=== PATIENT | male | born 1970 | race Caucasian/White ===

== ENCOUNTER 2017-07-15 17:43 | Inpatient (IN) | payer OTHER ==
[~2017-07-15] VITALS: Ht 185.4 cm; Wt 122.5 kg
--- NOTE | 2017-07-15 18:37 | NUR ---
PRE ADMISSION 47 year old male at intake office, alert and oriented x4, verbally responsive. bp: 157/98 p: 99 t: 98.0 r: 16 o2 sat: 95%. patient denies any food or drug allergies. Patient reports he is here to detox off of: Etoh, reports began drinking alcohol at age 7, but for the past year has been consuming 2 pints of peppermint schnapps daily, last drink on flight, reports consuming 9 shots of liquor and 5 beers. Patient also reports substance use of: opiates. Per patient for the past 6-7 years has been consuming 30mg of oxycodone three times a day and 20 mg morphine every two hours by mouth, patient reports last consumed an opiate on 07/13/2017. Patient reports he does have prescription medications, but has not taken in at least 3 weeks, patient does not recall what home medications he is prescribed as per patient he knows he takes blood pressure medication, and depression medication. Patient reports past medical history of: lyme disease, hypertension, chronic back pain, neuropathy, and kidney failure. Denies any history of seizures. Dr. Bishop notified of new admission. Will endorse to fruit or nut picker nurse to follow up on admission, all pre admission information discussed with fruit or nut picker nurse.
[2017-07-15 19:27] LABS: *AMPHETAMINE, URINE NEGATIVE (NEGATIVE); *BARBITURATE, URINE NEGATIVE (NEGATIVE); *CANNABINOID, URINE NEGATIVE (NEGATIVE); *COCCAINE, URINE NEGATIVE (NEGATIVE); *OPIATE, URINE NEGATIVE (NEGATIVE); *PHENCYCLIDINE SCREEN,URINE NEGATIVE (NEGATIVE)
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
[2017-07-15 20:00] VITALS: BP 154/98
--- NOTE | 2017-07-15 21:13 | NUR ---
PRN MEDS ADMINISTRATION PATIENT C/O ANXIETY, DIARRHEA, NAUSEA NO EMESIS AND ABDOMINAL CRAMPING. PATIENT WAS GIVEN PRN ATIVAN, BENTYL, ZOFRAN , IMODIUM, CATAPRES, ROBAXIN AND ZOFRAN. PATIENT NOTED RESTLESS. COWS 14 AND CIWA 10. RELAXATION TECHNIQUE PROVIDED. WILL MONITOR FOR EFFECTIVENESS Addendum: 07/16/17 at 0352 by AVEL JOHNSON LVN PATIENT WAS ALSO GIVEN PRN VISTARIL
[2017-07-15 21:24] LABS: BASOPHILS # (AUTO) 0.1 K/uL (0.0-8.0); BASOPHILS % (AUTO) 0.8 % (0.0-2.0); EOSINOPHILS # (AUTO) 0.2 K/uL (0.0-0.7); EOSINOPHILS % (AUTO) 2.8 % (0.0-7.0); HEMATOCRIT 45.3 % (40-50); HEMOGLOBIN 15.5 G/DL (14.0-18.0); LYMPHOCYTES # (AUTO) 2.2 K/UL (0.8-4.8); LYMPHOCYTES % (AUTO) 29.4 % (20.5-51.5); MEAN CORPUSCULAR HEMOGLOBIN 35.4 UUG (27.0-31.0); MEAN CORPUSCULAR HGB CONC 34 g/dL (32.0-37.0); MEAN CORPUSCULAR VOLUME 103.7 FL (82.0-92.0); MONOCYTES # (AUTO) 0.4 K/UL (0.1-1.30); MONOCYTES % (AUTO) 5.9 % (0.0-11.0); NEUTROPHILS # (AUTO) 4.6 K/UL (1.8-8.9); NEUTROPHILS % (AUTO) 61.1 % (38.5-71.5); PLATELET COUNT (AUTO) 65 K/UL (150-450); RED BLOOD CELL COUNT(AUTO) 4.37 MIL/UL (4.7-6.1); WHITE BLOOD COUNT (AUTO) 7.5 K/UL (4.0-11.2)
[2017-07-15 21:37] LABS: ALANINE AMINOTRANSFERASE 57 U/L (16-63); ALKALINE PHOSPHATASE 149 U/L (50-136); AMYLASE 62 U/L (25-115); ASPARTATE AMINOTRANSFERASE 134 U/L (15-37); BILIRUBIN,TOTAL 3.7 mg/dL (0.2-1.0); CARBON DIOXIDE 29 mmol/L (21-32); CHLORIDE 104 mmol/L (98-107); CREATININE 0.6 mg/dL (0.6-1.3); ETHANOL 175 MG/DL (0-0); GLUCOSE 103 mg/dL (74-106); LIPASE 144 U/L (73-393); MAGNESIUM 1.5 mg/dL (1.8-2.4); POTASSIUM 3.2 mmol/L (3.5-5.1); TOTAL PROTEIN, SERUM 8.2 g/dL (6.4-8.2); UREA NITROGEN, BLOOD 8 mg/dL (7-18)
[2017-07-15 21:46] LABS: BAND % (MANUAL) 7 % (0-10); NEUTROPHILS % (MANUAL) 59 % (42-75)
[2017-07-15 21:47] LABS: EOSINOPHILS % (MANUAL) 2 % (0-8); LYMPHOCYTES % (MANUAL) 28 % (20-40); MONOCYTES % (MANUAL) 4 % (2-10)
--- NOTE | 2017-07-15 22:13 | NUR ---
PRN MEDS RE-ASSESSMENT PATIENT PAIN LEVEL 2/10 AT THIS TIME, LESS ANXIOUS AND PATIENT STATES HE FEELS MUCH BETTER, NO DIARRHEA AT THIS TIME. ROBAXIN, BENTYL, CATAPRES AND ATIVAN HELPFUL. WILL CONTINUE TO MONITOR.
--- NOTE | 2017-07-15 23:27 | NUR ---
PRN BENADRYL/VISTARIL ADMINISTRATION PATIENT REPORTS ANXIETY AND REQUESTS FOR SLEEP AID. PRN BENADRYL AND VISTARIL. WILL MONITOR FOR EFFECTIVENESS
[2017-07-16] VITALS: BP 117/66
--- NOTE | 2017-07-16 00:27 | NUR ---
PRN BENADRYL/VISTARIL RE-ASSESSMENT PATIENT IN BED WITH EYES CLOSED. RESPIRATION EVEN AND UNLABORED. SAFETY MEASURES IN PLACE. CALL LIGHT IN REACH. WILL CONTINUE TO MONITOR
[2017-07-16 04:00] VITALS: BP 127/67
--- NOTE | 2017-07-16 06:39 | NUR ---
PRN ZOFRAN AND BENTYL ADMINISTRATION PATIENT C/O ABDOMINAL CRAMPING AND NAUSEA. WILL MONITOR FOR EFFECTIVENESS
--- NOTE | 2017-07-16 07:26 | NUR ---
END OF SHIFT NOTE PATIENT COMPLIANT WITH MEDICATIONS AND TREATMENT PLAN. PATIENT STABLE. PATIENT WAS GIVE PRN ATIVAN, IMODIUM, ZOFRAN X2 , ROBAXIN, BENADRYL, VISTARIL , BENTYL X 2 AND CATAPRES. SLEPT 6 HOURS. FLUID INTAKE 1,006 ML. VOIDED X 2 . NO BM. LAST COWS 3 AND CIWA 1 . MAGNESIUM AND POTASSIUM REPLACED. THIAMINE INJECTION WAS GIVEN ON RIGHT DELTOID. SAFETY MEASURES IN PLACE. CALL LIGHT IN REACH. WILL CONTINUE TO MONITOR.
--- NOTE | 2017-07-16 07:39 | NUR ---
Re-assessment; Patient denies stomach cramps, states slight improvement of nausea. PRN medications are effective.
[2017-07-16 08:00] VITALS: BP 148/89
--- NOTE | 2017-07-16 08:00 | NUR ---
Start of shift note; Received report from night nurse. Patient is a 47 year old male admitted on 07/15/17 for ETOH, Opiate dependence. patient to evaluated by MD today. Patient reported history of Lyme disease 12 years ago, hypertension, chronic back pain, neuropathy, depression. Patient is on a full code status, on regular diet, NKA. Patient slept for 6 hours. Last COWS is 3 and last CIWA is 1 at 0400. Patient is on fall and seizure precaution. Bed in lowest position, call light within reach. Will continue to monitor patient.
--- NOTE | 2017-07-16 09:18 | NUR ---
PRN medication; Patient is complaining of agitation, elevated BP (148/89) also noted. PRN Clonidine 0.1mg PO given as per ordered. Will continue to monitor patient.
--- NOTE | 2017-07-16 10:18 | NUR ---
RE-assessment; Patient's BP is 128/78, patient stated slight improvement with agitation. PRN medication is effective.
--- NOTE | 2017-07-16 10:47 | NUR ---
PRN medication; PRN Ativan 1mg PO given for CIWA of 8 manifested by anxiety, fine tremors,hot and cold sweats, agitation. Will closely monitor patient for effectiveness of medication.
--- NOTE | 2017-07-16 11:47 | NUR ---
Re-assessment; Patient's current CIWA is 4, PRN medication is effective.
[2017-07-16 12:00] VITALS: BP 133/86
--- NOTE | 2017-07-16 13:01 | NUR ---
PRN medication; Patient is showing s/s/ of withdrawals, manifested by anxiety, agitation, hot and cold sweats, muscle aches, nausea. Patient's current COWS score is 13, PRN Subutex 4mg SL given per MD order. PRN Zofran 4mg ODT also given for nausea. Will continue to monitor patient for effectiveness of medication.
--- NOTE | 2017-07-16 13:31 | NUR ---
Re-assessment; Patient appears less anxious, denies nausea, mild tremors still noted. PRN medication noted to be effective , Current COWS score is 8. Will continue to monitor patient.
[2017-07-16 16:00] VITALS: BP 134/88
--- NOTE | 2017-07-16 18:09 | NUR ---
End of shift notes; Patient is AOX4. Patient is a 47 year old male admitted on 07/15/17 for ETOH, Opiate dependence. Patient to evaluated by MD today. Patient reported history of Lyme disease 12 years ago, hypertension, chronic back pain, neuropathy, depression. Patient is on a full code status, on regular diet, NKA. Patient was started on Ativan taper and patient to start Subutex taper tomorrow per MD order. Patient is on fall and seizure precaution. Bed in lowest position, call light within reach. Patient remained compliant with treatment plan and medication regime. Medications were effective in reducing withdrawal symptoms. All safety measures secured. Met all needs.
[2017-07-16 20:00] VITALS: BP 145/106
--- NOTE | 2017-07-16 20:00 | NUR ---
START OF SHIFT NOTE PATIENT IN HIS ROOM. ALERT AND VERBALLY RESPONSIVE. RESPIRATION EVEN AND UNLABORED. PATIENT REPORTS ANXIETY, TREMORS, SWEATING, CHILLS , NO N/V/D AND ABDOMINAL CRAMPING. APPETITE IS GOOD. NO BOWEL MOVEMENT AT THIS TIME. ENCOURAGE FLUIDS. ENCOURAGE PATIENT TO ATTEND GROUPS. RECEIVED REPORT FROM DAY SHIFT NURSE. PATIENT IS A 47 YEAR OLD MALE, ADMITTED FOR ETOH/OPIATE DEPENDENCE. PATIENT WAS PLACED ON 5 DAY ATIVAN TAPER, STARTED TODAY. DR. ANGELES ORDERED ABDOMINAL ULTRASOUND AND WAS DONE TODAY, RESULT PENDING AND REPEAT LABS. PATIENT WAS GIVEN PRN ATIVAN, SUBUTEX AND CLONIDINE, ALL EFFECTIVE. LAST COWS 8 AND CIWA 8. PATIENT COMPLIANT WITH MEDICATIONS . ON FALL/SEIZURE PRECAUTION. SAFETY MEASURES IN PLACE. CALL LIGHT IN REACH. WILL CONTINUE TO MONITOR.
--- NOTE | 2017-07-16 21:05 | NUR ---
PRN ROBAXIN AND CLONIDINE ADMINISTRATION PATIENT WAS GIVEN ROBAXIN FOR GENERALIZED BODY ACHES /10 AND BP-145/106 AND PULSE 117. WILL MONITOR FOR EFFECTIVENESS
--- NOTE | 2017-07-16 22:05 | NUR ---
PRN ROBAXIN AND CLONIDINE RE-ASSESSMENT PATIENT STATES HE FEELS MUCH BETTER . PAIN LEVEL IS 2/10 AT THIS TIME. BLOOD PRESSURE IS NOW 143/93 P-108. WILL CONTINUE TO MONITOR.
--- NOTE | 2017-07-16 23:12 | NUR ---
PRN SEROQUEL ADMINISTRATION PATIENT REQUESTS FOR SLEEP AID. PRN SEROQUEL GIVEN. WILL MONITOR FOR EFFECTIVENESS
[2017-07-17] VITALS (7 sets, daily range): BP systolic 139–158; BP diastolic 93–104
--- NOTE | 2017-07-17 00:12 | NUR ---
PRN SEROQUEL RE-ASSESSMENT PATIENT IN BED SLEEPING . RESPIRATION EVEN AND UNLABORED. SAFETY MEASURES IN PLACE. CALL LIGHT IN REACH. WILL CONTINUE TO MONITOR
--- NOTE | 2017-07-17 00:47 | NUR ---
PRN TYLENOL AND CATAPRES ADMINISTRATION/ O2 THERAPY PATIENT C/O OF GENERALIZED BODY ACHES 03/15, BLOOD PRESSURE 150/100 HR 129. PATIENT NOTED O2 SAT BETWEEN 87-90%. PATIENT DENIES SHORTNESS OF BREATH. RESPIRATION EVEN AND UNLABORED. O2 GIVEN AT 2L/MIN ORDERED VIA NASAL CANNULA. WILL CONTINUE TO MONITOR. Addendum: 07/18/17 at 0101 by AVEL JOHNSON LVN ERROR: DATE AND TIME
[2017-07-17 06:58] LABS: BASOPHILS % (AUTO) 1.1 % (0.0-2.0); EOSINOPHILS # (AUTO) 0.1 K/uL (0.0-0.7); EOSINOPHILS % (AUTO) 3.7 % (0.0-7.0); HEMATOCRIT 38.9 % (40-50); LYMPHOCYTES # (AUTO) 1.2 K/UL (0.8-4.8); LYMPHOCYTES % (AUTO) 30.7 % (20.5-51.5); MEAN CORPUSCULAR HEMOGLOBIN 35.3 UUG (27.0-31.0); MEAN CORPUSCULAR HGB CONC 33 g/dL (32.0-37.0); MEAN CORPUSCULAR VOLUME 105.9 FL (82.0-92.0); MONOCYTES # (AUTO) 0.3 K/UL (0.1-1.30); MONOCYTES % (AUTO) 8.3 % (0.0-11.0); NEUTROPHILS # (AUTO) 2.2 K/UL (1.8-8.9); NEUTROPHILS % (AUTO) 56.2 % (38.5-71.5); RED BLOOD CELL COUNT(AUTO) 3.68 MIL/UL (4.7-6.1); WHITE BLOOD COUNT (AUTO) 3.8 K/UL (4.0-11.2)
--- NOTE | 2017-07-17 07:00 | NUR ---
END OF SHIFT NOTE PATIENT HAD UNEVENTFUL NIGHT. CONTINUE ON ATIVAN TAPER, TOLERATED WELL AND NO ADVERSE REACTION . PATIENT COMPLIANT WITH MEDICATIONS. PATIENT'S BLOOD PRESSURE WAS 145/106 AND HR OF 117 AT 1999. PRN CATAPRES WAS GIVEN AND EFFECTIVE, BLOOD PRESSURE RECHECKED , IT WENT DOWN TO 142/93 HR 108 . ABDOMINAL ULTRASOUND RESULT STILL PENDING . PATIENT WAS GIVEN ROBAXIN AND SEROQUEL . CONTINUE TO ENCOURAGE TO ATTEND GROUPS. PATIENT REMAIN FREE OF INJURY. ON FALL/SEIZURE PRECAUTION. SAFETY MEASURES IN PLACE. CALL LIGHT IN REACH. WILL CONTINUE TO MONITOR. SLEPT 6 HOURS. FLUID INTAKE 1,565 ML. VOIDED X 2. NO BM. LAST COWS 4 AND CIWA 3.
--- NOTE | 2017-07-17 07:03 | NUR ---
CRITICAL LAB FABIO WONG FROM LAB CALLED TO RELAY PATIENT'S PLATELET COUNT 39,000. DR. ANGELES WAS MADE AWARE. WAITING FOR ORDER. ENDORSED TO NEXT SHIFT NURSE.
[2017-07-17 07:04] LABS: PLATELET COUNT (AUTO) 39 K/UL (150-450)
--- NOTE | 2017-07-17 07:30 | NUR ---
Start of shift note; Received report from night nurse. Patient is a 47 year old male admitted on 07/15/17 for ETOH, Opiate dependence. patient was placed on Subutex and Ativan taper, no adverse reaction noted. Patient reported history of Lyme disease 12 years ago, hypertension, chronic back pain, neuropathy, depression. Patient is on a full code status, on regular diet, NKA. Patient slept for 6 hours. Last COWS is 4 and last CIWA is 3 at 0400. Patient is on fall and seizure precaution. Bed in lowest position, call light within reach. Will continue to monitor patient.
--- NOTE | 2017-07-17 07:30 | NUR ---
Critical lab f/u; MD was notified regarding low Platelet count, no new orders noted per MD as per endorsement by operations supervisor 2nd shift nurse and charge nurse. Will closely monitor patient. Bleeding precautions observed.
[2017-07-17 07:56] LABS: BILIRUBIN,DIRECT 1.7 mg/dL (0.0-0.2); BILIRUBIN,TOTAL 6.2 mg/dL (0.2-1.0); CREATININE 0.7 mg/dL (0.6-1.3); MAGNESIUM 1.5 mg/dL (1.8-2.4); PHOSPHOROUS 4.9 mg/dL (2.5-4.9); POTASSIUM 4.1 mmol/L (3.5-5.1); TOTAL PROTEIN, SERUM 7.2 g/dL (6.4-8.2)
--- NOTE | 2017-07-17 08:55 | NUR ---
PRN medication; Patient's BP noted to be elevated , 150/101. PRN Clonidine 0.1mg PO given as per MD order.Will continue to monitor patient for effectiveness of medication.
[2017-07-17 09:07] LABS: NEUTROPHILS % (MANUAL) 58 % (42-75)
[2017-07-17 09:08] LABS: BASOPHILS % (MANUAL) 0 % (0-2); EOSINOPHILS % (MANUAL) 4 % (0-8); LYMPHOCYTES % (MANUAL) 30 % (20-40); MONOCYTES % (MANUAL) 8 % (2-10)
--- NOTE | 2017-07-17 09:43 | NUR ---
communication; notified of patient's LAB results specifically Magnesium 1.5, Platelets 39 and US results, MD to review results. No new orders at this time.
--- NOTE | 2017-07-17 09:55 | NUR ---
Re-Assessment; Patient's current BP is 128/82, PRN clonidine is effective.
--- NOTE | 2017-07-17 11:10 | NUR ---
Endorsement given; Detailed report endorsed to covering nurse. Patient is currently in group therapy. Magnesium oxide 800mg PO one time order to supplement low magnesium to be given by covering nurse, d/t/ patient is in group therapy. All safety measures secured. Met all needs.
--- NOTE | 2017-07-17 11:17 | NUR ---
ENDORSEMENT RECEIVED Received endorsement from day shift nurse to continue with care. Pt is in stable condition and is currently attending group therapy. Will continue with care.
[2017-07-17 12:10] LABS: HEPATITIS B SURFACE AG Negative (Negative)
--- NOTE | 2017-07-17 18:01 | NUR ---
PRN GIVEN Pt BP was 155/102. Pt is asymptomatic. Clonidine 0.1mg PO PRN was given as ordered. Pt is also c/o heartburn. Maalox PRN was given as ordered. Encouraged increase fluid intake. will continue to monitor.
--- NOTE | 2017-07-17 19:00 | NUR ---
END OF SHIFT Pt is a 47 yr old male, A&Ox3. Pt was admitted on 07/15/17 for ETOH/Opiate Dependence and is on 4 day Ativan and 4 day Subutex taper as ordered. Medication kim well. Pt received Clonidine PRN and Maalox PRN at 1800 for increase BP and heartburn. Medication was mildly effective, BP is 147/104. Endorsed to skewer up nurse to continue to monitor. Last COWS score was 8 and CIWA score was 5 at 1600. Skin is intact, warm and moist tot touch. Fine tremors are seen. Encouraged pt to drink plenty of fluids for hydration. Safety precautions observed. Call light is within reach.
--- NOTE | 2017-07-17 20:00 | NUR ---
START OF SHIFT NOTE PATIENT IN HIS ROOM RESTING. PATIENT ALERT AND ORIENTED X 4. RESPIRATION EVEN AND UNLABORED. NO SOB. PATIENT REPORTS ANXIETY, SWEATING, CHILLS, NAUSEA BUT NO EMESIS, PATIENT DID NOT WANT ANY MEDS FOR NAUSEA, SLIGHT TREMORS NOTED AND STUFFY NOSE. PATIENT C/O LOWERS BACK 6/10. HE ATTENDED 1 GROUP FOR FEW MINUTES. PATIENT CONTINUE TO ENCOURAGED. RECEIVED REPORT FROM DAY SHIFT NURSE. PATIENT IS A 47 YEAR OLD MALE ADMITTED FOR ETOH/OPIATE DEPENDENCE. PATIENT IS ON 2ND DAY OF 5 DAY ATIVAN TAPER. PATIENT'S BP WAS ELEVATED. PATIENT WAS GIVEN PRN CLONIDINE AND MAALOX. NEW ORDER OF NORVASC, STARTED TODAY. MAGNESIUM 1.5- REPLACED. PLATELETS 39 AND US RESULT- DR. GIL WITH NO NEW ORDER. LAST COWS 8 AND CIWA 5. ON FALL/SEIZURE PRECAUTION. SAFETY MEASURES IN PLACE. CALL LIGHT IN REACH. WILL CONTINUE TO MONITOR.
--- NOTE | 2017-07-17 20:38 | NUR ---
PRN ROBAXIN ADMINISTRATION PATIENT C/O LOWER BACK PAIN 04/15. PRN ROBAXIN GIVEN. WILL MONITOR FOR EFFECTIVENESS
--- NOTE | 2017-07-17 21:38 | NUR ---
PRN ROBAXIN RE-ASSESSMENT PATIENT STATES ROBAXIN IS HELPFUL . PAIN LEVEL IS 2/10 AT THIS TIME, TOLERABLE. WILL CONTINUE TO MONITOR
[2017-07-18] VITALS: BP 150/100
--- NOTE | 2017-07-18 00:47 | NUR ---
PRN TYLENOL AND CATAPRES ADMINISTRATION/ O2 THERAPY PATIENT C/O OF GENERALIZED BODY ACHES 5/10, BLOOD PRESSURE 150/100 HR 129. PATIENT NOTED O2 SAT BETWEEN 87-90%. PATIENT DENIES SHORTNESS OF BREATH. RESPIRATION EVEN AND UNLABORED. O2 GIVEN AT 2L/MIN ORDERED VIA NASAL CANNULA. PRN TYLENOL AND CATAPRES GIVEN. WILL CONTINUE TO MONITOR.
--- NOTE | 2017-07-18 01:47 | NUR ---
PRN TYLENOL AND CATAPRES RE-ASSESSMENT VS BP-146/92 P-121 T-98.8 R-17 SpO2 AT 97% ON 2L/MIN VIA NASAL CANNULA. PAIN LEVEL 2/10 AT THIS TIME, TOLERABLE. WILL CONTINUE TO MONITOR.
--- NOTE | 2017-07-18 02:04 | NUR ---
MD ORDER DR. GIL NOTIFIED OF PATIENT HAVING ELEVATED HR. EKG ORDERED. WILL CONTINUE TO MONITOR. HR-121. DENIES CHEST PAIN AND NO SHORTNESS OF BREATH.
--- NOTE | 2017-07-18 02:20 | NUR ---
EKG RESULT PATIENT IS SINUS TACHYCARDIA BUT OTHERWISE NORMAL ECG.
[2017-07-18 04:00] VITALS: BP 155/86
--- NOTE | 2017-07-18 07:06 | NUR ---
END OF SHIFT NOTE PATIENT CONTINUE ON ATIVAN TAPER AND SUBUTEX TAPER , TOLERATED WELL AND NO ADVERSE REACTION. PATIENT C/O LOWER BACK PAIN BEGINNING OF SHIFT AND WAS GIVEN PRN ROBAXIN AT 2037. PATIENT'S BP AND WAS ELEVATED AT 0047, TEMPERATURE OF 99.6 , SpO2 BETWEEN 87-89% IN RA AND C/O GENERALIZED BODY ACHES, PATIENT WAS GIVEN PRN CLONIDINE AND TYLENOL . MD ORDER O2 THERAPY. PATIENT WAS PLACED ON O2 AT 2L/MIN. PATIENT DENIES SHORTNESS OF BREATH AND CHEST PAIN. PATIENT'S O2 INCREASED TO 97% , HR OF 121 , TEMPERATURE OF 98.8 AND BP-146/92. MD ORDER EKG AND RESULTED SINUS TACHYCARDIA OTHERWISE NORMAL ECG. ENCOURAGED PATIENT FLUIDS. PATIENT ON FALL/SEIZURE PRECAUTION. SAFETY MEASURES IN PLACE. CALL LIGHT IN REACH. WILL CONTINUE TO MONITOR. SLEPT 10 HOURS. FLUID INTAKE 1,255 ML. VOIDED X .2 BM X 1. LAST COWS 6 AND CIWA 3 .
--- NOTE | 2017-07-18 07:08 | NUR ---
Start of Shift Endorsement received from nightshift nurse. Pt is a 47 y/o male admitted for alcohol, oxycodone and morphine dependence. PT has been placed on a 5 day Ativan and 4 day Subutex taper. Pt is tolerating the taper AEB COWS 5 CIWA 4. PT received PRN Robaxin, Clonidine and Tylenol. Pt presents with low platelet count under 40,000. PT also had low grade fever during the night. An EKG was performed due to pt presenting with elevated HR above 120. Pt is in stable condition at this time with elevated HR of 109, BP WNL. Full Code. PT is alert and oriented x4. Pt is in STABLE condition at this time. Remains compliant with medication and diet regimen. All needs have been met, All safety measures in place per hospital policy. Bed in lowest position, side rails up x2, call-light within reach. Will continue to monitor
[2017-07-18 07:17] LABS: BILIRUBIN,TOTAL 5.5 mg/dL (0.2-1.0); CREATININE 0.7 mg/dL (0.6-1.3); MAGNESIUM 1.4 mg/dL (1.8-2.4); PHOSPHOROUS 4.7 mg/dL (2.5-4.9); POTASSIUM 4.2 mmol/L (3.5-5.1); TOTAL PROTEIN, SERUM 7.4 g/dL (6.4-8.2)
[2017-07-18 07:40] LABS: BASOPHILS % (AUTO) 0.6 % (0.0-2.0); EOSINOPHILS # (AUTO) 0.1 K/uL (0.0-0.7); EOSINOPHILS % (AUTO) 2.9 % (0.0-7.0); HEMOGLOBIN 12.7 G/DL (14.0-18.0); LYMPHOCYTES # (AUTO) 1.5 K/UL (0.8-4.8); LYMPHOCYTES % (AUTO) 30.7 % (20.5-51.5); MEAN CORPUSCULAR HEMOGLOBIN 36.7 UUG (27.0-31.0); MEAN CORPUSCULAR HGB CONC 34 g/dL (32.0-37.0); MEAN CORPUSCULAR VOLUME 106.5 FL (82.0-92.0); MONOCYTES # (AUTO) 0.5 K/UL (0.1-1.30); MONOCYTES % (AUTO) 10.1 % (0.0-11.0); NEUTROPHILS # (AUTO) 2.8 K/UL (1.8-8.9); NEUTROPHILS % (AUTO) 55.7 % (38.5-71.5); RED BLOOD CELL COUNT(AUTO) 3.48 MIL/UL (4.7-6.1)
[2017-07-18 07:48] LABS: WHITE BLOOD COUNT (AUTO) 4.9 K/UL (4.0-11.2)
[2017-07-18 07:49] LABS: PLATELET COUNT (AUTO) 40 K/UL (150-450)
[2017-07-18 08:00] VITALS: BP 152/96
[2017-07-18 09:57] LABS: BAND % (MANUAL) 2 % (0-10); EOSINOPHILS % (MANUAL) 3 % (0-8); LYMPHOCYTES % (MANUAL) 37 % (20-40); MONOCYTES % (MANUAL) 6 % (2-10); NEUTROPHILS % (MANUAL) 52 % (42-75)
[2017-07-18 12:00] VITALS: BP 144/89
--- NOTE | 2017-07-18 13:10 | NUR ---
PRN Medications Administered PRN Miralax and Maalox for heartburn and constipation reported by the pt.
[2017-07-18 16:00] VITALS: BP 152/93
--- NOTE | 2017-07-18 19:16 | NUR ---
End of Shift Endorsement given to nightshift nurse. Pt is a 47 y/o male admitted for alcohol, oxycodone and morphine dependence. PT has been placed on a 5 day Ativan and 4 day Subutex taper. Pt is tolerating the taper AEB COWS 5 CIWA 5. PT did not receive any PRN medications. Pt presents with low platelet count under 40,000. Pt participated in groups and activities. Pt received PRN Miralax and Maalox . Pt reports relieve from heartburn, medication was effective. Pt denies having a BM, Pt is in stable condition at this time with elevated HR of 105, BP WNL. Full Code. Intake: 4000ml, Void x5, BM x0.PT is alert and oriented x4. Pt is in STABLE condition at this time. Remains compliant with medication and diet regimen. All needs have been met, All safety measures in place per hospital policy. Bed in lowest position, side rails up x2, call-light within reach. Will continue to monitor
--- NOTE | 2017-07-18 19:17 | NUR ---
Start of shift note Received report from day shift nurse. Pt is a 47 yo male, A+Ox4, presenting to [facility] for ETOH/Opiate dependence. Pt has NKA, is on Full Code status, and on Regular diet. Pt is on Fall and Seizure precautions. Pt has HX of Lyme disease, HTN, Kidney failure, Chronic back pain, Neuropathy, tachycardia, and multiple SX's. Pt is on 5 day Ativan and 5 day Subutex tapers tolerated well. No s/s of distress noted at this time. Respirations even and unlabored. Will continue to monitor.
[2017-07-18 20:10] VITALS: BP 140/98
[2017-07-19 00:17] VITALS: BP 136/95
[2017-07-19 04:36] VITALS: BP 147/99
--- NOTE | 2017-07-19 06:51 | NUR ---
End of shift note Pt is a 47 yo male, A+Ox4, presenting to [facility] for ETOH/Opiate dependence. Pt has NKA, is on Full Code status, and on Regular diet. Pt is on Fall and Seizure precautions. Pt has HX of Lyme disease, HTN, Kidney failure, Chronic back pain, Neuropathy, tachycardia, and multiple SX's. Pt is on 5 day Ativan and 5 day Subutex tapers tolerated well. Pt slept for a total of 8 HRS. Last COWS: 4 and Last CIWA: 3 @0400. No s/s of distress noted at this time. Respirations even and unlabored. Will endorse to day shift nurse.
--- NOTE | 2017-07-19 07:10 | NUR ---
Start of Shift Endorsement received from nightshift nurse. Pt is a 47 y/o male admitted for alcohol, oxycodone and morphine dependence. PT has been placed on a 5 day Ativan and 4 day Subutex taper. Pt is tolerating the taper AEB COWS 4 CIWA 3. PT has not received any PRN medications. PT reports sleeping 8 hours and feeling rested. Pt appears with a flat affect. PT is on a PRN 2L O2 per MD. Full Code. PT is alert and oriented x4. Pt is in STABLE condition at this time. Remains compliant with medication and diet regimen. All needs have been met, All safety measures in place per hospital policy. Bed in lowest position, side rails up x2, call-light within reach. Will continue to monitor
[2017-07-19 08:00] VITALS: BP 156/92
[2017-07-19 08:06] LABS: BASOPHILS % (AUTO) 0.8 % (0.0-2.0); EOSINOPHILS # (AUTO) 0.1 K/uL (0.0-0.7); EOSINOPHILS % (AUTO) 1.7 % (0.0-7.0); HEMATOCRIT 37.4 % (40-50); HEMOGLOBIN 12.7 G/DL (14.0-18.0); LYMPHOCYTES # (AUTO) 1.2 K/UL (0.8-4.8); LYMPHOCYTES % (AUTO) 26.1 % (20.5-51.5); MEAN CORPUSCULAR HEMOGLOBIN 36.7 UUG (27.0-31.0); MEAN CORPUSCULAR HGB CONC 34 g/dL (32.0-37.0); MEAN CORPUSCULAR VOLUME 107.6 FL (82.0-92.0); MONOCYTES # (AUTO) 0.5 K/UL (0.1-1.30); MONOCYTES % (AUTO) 9.9 % (0.0-11.0); NEUTROPHILS # (AUTO) 2.8 K/UL (1.8-8.9); NEUTROPHILS % (AUTO) 61.5 % (38.5-71.5); RED BLOOD CELL COUNT(AUTO) 3.48 MIL/UL (4.7-6.1); WHITE BLOOD COUNT (AUTO) 4.7 K/UL (4.0-11.2)
[2017-07-19 08:14] LABS: BILIRUBIN,DIRECT 1.9 mg/dL (0.0-0.2); BILIRUBIN,TOTAL 4.9 mg/dL (0.2-1.0); CREATININE 0.7 mg/dL (0.6-1.3); MAGNESIUM 1.6 mg/dL (1.8-2.4); PHOSPHOROUS 4.1 mg/dL (2.5-4.9); TOTAL PROTEIN, SERUM 7.4 g/dL (6.4-8.2)
[2017-07-19 08:26] LABS: PLATELET COUNT (AUTO) 49 K/UL (150-450)
--- NOTE | 2017-07-19 08:29 | NUR ---
CRITICAL LAB Sujey Milligan from lab called with result plt=[id number].
[2017-07-19 09:34] LABS: BAND % (MANUAL) 3 % (0-10); NEUTROPHILS % (MANUAL) 52 % (42-75)
[2017-07-19 09:35] LABS: EOSINOPHILS % (MANUAL) 1 % (0-8); LYMPHOCYTES % (MANUAL) 34 % (20-40); MONOCYTES % (MANUAL) 10 % (2-10)
[2017-07-19 12:00] VITALS: BP 133/74
[2017-07-19 16:00] VITALS: BP 142/87
--- NOTE | 2017-07-19 19:24 | NUR ---
End of Shift Endorsement given to nightshift nurse. Pt is a 47 y/o male admitted for alcohol, oxycodone and morphine dependence. PT has been placed on a 5 day Ativan and 4 day Subutex taper. Pt is tolerating the taper AEB COWS 6 CIWA 4. PT did not receive any PRN medications. Pt presents with low platelet count under 49,000. Pt participated in groups and activities. Pt did not receive any PRN Medications. Educated pt on S/E of medications and withdrawal symptoms.. Pt denies having a BM, Pt is in stable condition at this time with elevated HR of 105, BP WNL. Full Code. Intake: 3614ml, Void x4, BM x0.PT is alert and oriented x4. Pt is in STABLE condition at this time. Remains compliant with medication and diet regimen. All needs have been met, All safety measures in place per hospital policy. Bed in lowest position, side rails up x2, call-light within reach. Will continue to monitor
--- NOTE | 2017-07-19 19:25 | NUR ---
Start of shift note Received report from day shift nurse. Pt is a 47 yo male, A+Ox4, presenting to [facility] for ETOH/Opiate dependence. Pt has NKA, is on Full Code status, and on Regular diet. Pt is on Fall and Seizure precautions. Pt has HX of Lyme disease, HTN, Kidney failure, Chronic back pain, Neuropathy, tachycardia, and multiple SX's. Pt is on 5 day Ativan and 5 day Subutex tapers tolerated well. No s/s of distress noted at this time. Respirations even and unlabored. Will continue to monitor.
[2017-07-19 20:10] VITALS: BP 142/85
[2017-07-20 00:10] VITALS: BP 146/75
[2017-07-20 04:42] VITALS: BP 142/96
--- NOTE | 2017-07-20 07:00 | NUR ---
End of shift note Pt is a 47 yo male, A+Ox4, presenting to [facility] for ETOH/Opiate dependence. Pt has NKA, is on Full Code status, and on Regular diet. Pt is on Fall and Seizure precautions. Pt has HX of Lyme disease, HTN, Kidney failure, Chronic back pain, Neuropathy, tachycardia, and multiple SX's. Pt is on 5 day Ativan and 5 day Subutex tapers tolerated well. Pt slept for a total of 8 HRS. Last COWS: 3 and Last CIWA: 2 @0400. No s/s of distress noted at this time. Respirations even and unlabored. Will endorse to day shift nurse.
--- NOTE | 2017-07-20 07:10 | NUR ---
Start of shift note Pt was admitted for ETOH and opiate dependence. Pt has a PMHx of lyme disease, HTN, chronic back pain, neuropathy, kidney failure, knee surgery, depression and multiple surgeries d/t broken bones with plates. Pt is on fall and seizure precautions, is a full code, denies any allergies and is on a regular diet. Pt is on the last day of his subutex and ativan taper. Pt is currently resting in bed, pt has no complaints at this time, will continue to monitor pt. All needs addressed at this time.
[2017-07-20 08:00] VITALS: BP 129/78
[2017-07-20 08:18] LABS: BILIRUBIN,DIRECT 1.6 mg/dL (0.0-0.2); BILIRUBIN,TOTAL 2.8 mg/dL (0.2-1.0); CREATININE 0.7 mg/dL (0.6-1.3); MAGNESIUM 1.6 mg/dL (1.8-2.4); PHOSPHOROUS 3.4 mg/dL (2.5-4.9); POTASSIUM 4.6 mmol/L (3.5-5.1); TOTAL PROTEIN, SERUM 7.3 g/dL (6.4-8.2)
[2017-07-20 08:21] LABS: EOSINOPHILS # (AUTO) 0.1 K/uL (0.0-0.7); EOSINOPHILS % (AUTO) 2.5 % (0.0-7.0); HEMATOCRIT 37.3 % (40-50); HEMOGLOBIN 12.4 G/DL (14.0-18.0); LYMPHOCYTES % (AUTO) 21.3 % (20.5-51.5); MEAN CORPUSCULAR HEMOGLOBIN 35.9 UUG (27.0-31.0); MEAN CORPUSCULAR HGB CONC 33 g/dL (32.0-37.0); MEAN CORPUSCULAR VOLUME 107.9 FL (82.0-92.0); MONOCYTES # (AUTO) 0.5 K/UL (0.1-1.30); MONOCYTES % (AUTO) 10.8 % (0.0-11.0); NEUTROPHILS # (AUTO) 3.3 K/UL (1.8-8.9); NEUTROPHILS % (AUTO) 64.4 % (38.5-71.5); PLATELET COUNT (AUTO) 58 K/UL (150-450); RED BLOOD CELL COUNT(AUTO) 3.46 MIL/UL (4.7-6.1); WHITE BLOOD COUNT (AUTO) 4.9 K/UL (4.0-11.2)
[2017-07-20 09:13] LABS: EOSINOPHILS % (MANUAL) 2 % (0-8); LYMPHOCYTES % (MANUAL) 21 % (20-40); MONOCYTES % (MANUAL) 6 % (2-10); NEUTROPHILS % (MANUAL) 71 % (42-75)
[2017-07-20 12:00] VITALS: BP 136/87
--- NOTE | 2017-07-20 13:11 | NUR ---
Pt education Magnesium supplement given, educated pt on hypomagnesia, and about foods high in magnesium. Pt verbalized his understanding.
[2017-07-20 16:00] VITALS: BP 144/76
--- NOTE | 2017-07-20 19:06 | NUR ---
End of shift note Pt was admitted for ETOH and opiate dependence. Pt is on fall and seizure precautions, is a full code, denies any allergies and is on a regular diet. Pt has a PMHx of lyme disease, HTN, chronic back pain, neuropathy, kidney failure, knee surgery, depression and multiple surgeries d/t broken bones with plates. Pt's ativan and subutex taper were extended d/t pt having s/s of withdrawal. Pt has no further complaints at this time. Pt states that he is comfortable. Encouraged pt to participate in groups and activities throughout the shift. Will endorse SBAR to oncoming shift. Pt has a COWS of 5 and CIWA of 2 at 1600. Pt drank 2720 ml of fluids, had 6 voids, 1 BM, and ate 100% of meals. All needs addressed at this time.
--- NOTE | 2017-07-20 20:10 | NUR ---
Start of shift: Rec'd patient resting quietly with eyes closed. No signs of distress. Afebrile and vital signs are stable. Pt was admitted for ETOH and opiate dependence. Pt is on the last day of his Subutex and Ativan taper. Pt is tolerating well. Reviewed current plan of care. Patient verbalized understanding. No other concerns at this time. Safety and fall precaution in progress. Bed is in the lowest position, side rails are up and call light within reach. Will continue to monitor pt closely.
[2017-07-20 20:36] VITALS: BP 140/83
[2017-07-21 04:33] VITALS: BP 153/81
--- NOTE | 2017-07-21 06:20 | NUR ---
End of shift: Pt is a 47 yr old male, A&Ox3. Pt was admitted on 07/15/17 for ETOH/Opiate Dependence. Patient is on day 6 of Ativan and day 6 of Subutex taper as ordered. Medication tolerated well. Patient rec'd no prn medication during the shift. Last COWS score was 4 and CIWA score was 15 at 0430. Patient slept a total of 8 hrs. Encouraged pt to drink plenty of fluids for hydration. No other concerns at this time. All needs were met. Safety precautions maintained. Call light is within reach. Will endorse to oncoming shift to follow up care.
--- NOTE | 2017-07-21 07:15 | NUR ---
Start of Shift Endorsement received from nightshift nurse. Pt is a 47 y/o male admitted for alcohol, oxycodone and morphine dependence. PT has been placed on a 5 day Ativan and 4 day Subutex taper. Pt is tolerating the taper AEB COWS 4 CIWA 1. PT has not received any PRN medications. PT reports sleeping 6 hours, pt reports wanting to sleep more. PT is on a PRN 2L O2 per MD. Full Code. PT is alert and oriented x4. Pt is in STABLE condition at this time. Remains compliant with medication and diet regimen. All needs have been met, All safety measures in place per hospital policy. Bed in lowest position, side rails up x2, call-light within reach. Will continue to monitor
[2017-07-21 08:00] VITALS: BP 128/78
[2017-07-21 12:00] VITALS: BP 114/82
[2017-07-21 14:10] LABS: BASOPHILS % (AUTO) 0.8 % (0.0-2.0); EOSINOPHILS # (AUTO) 0.1 K/uL (0.0-0.7); EOSINOPHILS % (AUTO) 1.6 % (0.0-7.0); HEMATOCRIT 35.5 % (40-50); HEMOGLOBIN 12.4 G/DL (14.0-18.0); LYMPHOCYTES # (AUTO) 1.1 K/UL (0.8-4.8); LYMPHOCYTES % (AUTO) 25.9 % (20.5-51.5); MEAN CORPUSCULAR HEMOGLOBIN 37.1 UUG (27.0-31.0); MEAN CORPUSCULAR HGB CONC 35 g/dL (32.0-37.0); MEAN CORPUSCULAR VOLUME 105.8 FL (82.0-92.0); MONOCYTES # (AUTO) 0.5 K/UL (0.1-1.30); MONOCYTES % (AUTO) 12.6 % (0.0-11.0); NEUTROPHILS # (AUTO) 2.5 K/UL (1.8-8.9); NEUTROPHILS % (AUTO) 59.1 % (38.5-71.5); PLATELET COUNT (AUTO) 59 K/UL (150-450); RED BLOOD CELL COUNT(AUTO) 3.36 MIL/UL (4.7-6.1); WHITE BLOOD COUNT (AUTO) 4.2 K/UL (4.0-11.2)
[2017-07-21 14:19] LABS: CREATININE 0.7 mg/dL (0.6-1.3); EOSINOPHILS % (MANUAL) 2 % (0-8); LYMPHOCYTES % (MANUAL) 21 % (20-40); MAGNESIUM 1.8 mg/dL (1.8-2.4); MONOCYTES % (MANUAL) 6 % (2-10); NEUTROPHILS % (MANUAL) 71 % (42-75); POTASSIUM 4.7 mmol/L (3.5-5.1)
[2017-07-21 16:00] VITALS: BP 148/82
--- NOTE | 2017-07-21 19:20 | NUR ---
End of Shift Endorsement given to nightshift nurse. Pt is a 47 y/o male admitted for alcohol, oxycodone and morphine dependence. PT has been placed on a 5 day Ativan and 4 day Subutex taper. Pt is tolerating the taper AEB COWS 3 CIWA 1. PT has not received any PRN medications. Pt has been scheduled to be discharged on 07/22/17. All discharge documentation has been completed. Provided the pt with discharge education. Educated pt on diet regimen. Encouraged pt to participate in groups and activities. Pt participated in groups and activities. Intake: 1600ml, Void x4, BM x0. . PT is on a PRN 2L O2 per MD. Full Code. PT is alert and oriented x4. Pt is in STABLE condition at this time. Remains compliant with medication and diet regimen. All needs have been met, All safety measures in place per hospital policy. Bed in lowest position, side rails up x2, call-light within reach. Will continue to monitor
--- NOTE | 2017-07-21 19:30 | NUR ---
Start of Shift Note: Patient is a 47 y/o male admitted on 07/15/17 for ETOH and Opiate dependence. PMHx: Lyme's disease, HTN, Chronic Back pain, Neuropathy, Kidney Failure, & Depression. Patient is on a regular diet with no known food and drug allergies. Full Code status. Pt completed his Subutex and Ativan taper and he is scheduled to be discharge tomorrow. Last COWS 3 CIWA 1. No PRN medications given during day shift. Patient remains stable and vitals WNL. Patient is alert & oriented x4. Patient is ambulatory with a steady gait. No shortness of breath noted. Respiration even & unlabored. Abdomen soft & non-distended. No nausea/vomiting noted. Patient complains of 7/10 body aches. No headache noted. Patient denies any hallucinations. Safety measures in place. Bed locked in lowest position. Both side rails up. Call light within pt's reach. Will continue to monitor patient.
[2017-07-21 20:00] VITALS: BP 125/76
--- NOTE | 2017-07-21 21:00 | NUR ---
Mag Oxide Pt was given Mag Oxide 400mg PO as ordered for Magnesium level of 1.8.
[2017-07-21] MEDS ORDERED: MULT-24 PO (21:43)
[2017-07-21] MEDS ORDERED: BACL10TA PO (21:43)
[2017-07-21] MEDS ORDERED: GABA-534 PO (21:43)
[2017-07-21] MEDS ORDERED: CLON0.1T14 PO (21:43)
[2017-07-21] MEDS ORDERED: THIA100T13 PO (21:43)
[2017-07-21] MEDS ORDERED: FOLI1TAB16 PO (21:43)
[2017-07-21] MEDS ORDERED: QUET25TA PO (21:43)
[2017-07-21] MEDS ORDERED: DICY20TA28 PO (21:43)
[2017-07-21] MEDS ORDERED: HYDR-3895 PO (21:43)
[2017-07-21] MEDS ORDERED: AMLO10TA2 PO (21:43)
--- NOTE | 2017-07-21 23:48 | NUR ---
PRN Seroquel Patient complaining that he could not sleep. PRN Seroquel administered as ordered. Will continue to monitor patient.
[2017-07-22] VITALS: BP 151/79
--- NOTE | 2017-07-22 00:01 | NUR ---
PRN Tylenol & Robaxin Patient complaining of lower back pain and leg pain. Patient appears restless with facial grimacing noted. PRN Robaxin and Tylenol administered as ordered. Will continue to monitor patient.
--- NOTE | 2017-07-22 00:48 | NUR ---
PRN Reassessment Patient asleep in bed and appears comfortable. No facial grimacing noted. No s/s of distress. Will continue to monitor patient.
[2017-07-22 04:00] VITALS: BP 117/70
--- NOTE | 2017-07-22 07:14 | NUR ---
End of Shift Note: Pt had an uneventful night. Pt completed his Subutex and Ativan taper and he is scheduled to be discharge today. Last COWS 5 CIWA 3. Pt was given PRN Seroquel, Robaxin & Tylenol and were effective. Pt was also given a one time Mag Oxide 400g per MD's order. Pt is alert & oriented x4. Pt remained stable and vitals remains WNL. Pt remained compliant with medications and treatment. All needs have been met, All safety measures in place per hospital policy. Bed in lowest position, side rails up x2, call-light within reach. Pt slept for a total of 7 hours. Pt consumed 1025ml of fluirds. Voided 2x with no bowel movement. Will continue to monitor.
--- NOTE | 2017-07-22 07:15 | NUR ---
Start of shift note Pt was admitted for ETOH and opiate dependence. Pt is on fall and seizure precautions, is a full code, denies any allergies and is on a regular diet. Pt has a PMHx of lyme disease, HTN, chronic back pain, neuropathy, kidney failure, knee surgery, depression and multiple surgeries d/t broken bones with plates. Pt is scheduled to discharge today and states that he feels ready. Pt has no complaints at this time. Will continue to monitor pt. All needs addressed at this time.
[2017-07-22 08:00] VITALS: BP 107/81
[2017-07-22 08:34] VITALS: BP 107/81
--- NOTE | 2017-07-22 09:35 | NUR ---
Discharge Note Pt was admitted for ETOH and opiate dependence. Pt has a recent COWS of 3 and CIWA of 2. VS are WNL. LBM 07/20/17. Denies SI/HI. Verbalized understanding of discharge instructions, stated that he understands that he needs to make several appointments with the MD's listed and highlighted in his discharge instructions. Pt discharge instructions, prescriptions and all belongings returned to pt. Pt ID band removed, pt ambulated off of unit, left facility via [facility] for the [facility].
== END 2017-07-22 09:35 | disposition other institution (70) | DRG 895 ==
LOC: SRC 17:43
PROVIDERS: ADMIT Internal Medicine; ATTEND Internal Medicine
DX: F10.239 Alcohol dependence with withdrawal, unspecified (principal); E87.3 Alkalosis; D61.818 Other pancytopenia; K76.6 Portal hypertension; E83.42 Hypomagnesemia; G62.1 Alcoholic polyneuropathy; B94.8 Sequelae of other specified infectious and parasitic diseases; K70.30 Alcoholic cirrhosis of liver without ascites; F17.210 Nicotine dependence, cigarettes, uncomplicated; K70.40 Alcoholic hepatic failure without coma; F11.23 Opioid dependence with withdrawal; K70.10 Alcoholic hepatitis without ascites; Y90.6 Blood alcohol level of 120-199 mg/100 ml; Z81.1 Family history of alcohol abuse and dependence; E87.6 Hypokalemia; M17.0 Bilateral primary osteoarthritis of knee; E86.0 Dehydration; F32.9 Major depressive disorder, single episode, unspecified; G47.00 Insomnia, unspecified; I15.9 Secondary hypertension, unspecified; F06.4 Anxiety disorder due to known physiological condition; D75.89 Other specified diseases of blood and blood-forming organs; F13.10 Sedative, hypnotic or anxiolytic abuse, uncomplicated; G89.29 Other chronic pain; M54.5 Low back pain; G47.33 Obstructive sleep apnea (adult) (pediatric)
CPT/HCPCS: 36415; 70030-TC; 76700; 80307; 80346; 82747; 83690; 83735; 84100; 84443; 85014; 85025; 86580; 86592; 86705; 86803; 87340; 87806; 93005; A4663; G0480; J3411; Q0162; Q0163